=== PATIENT | male | born 1965 | race Native Hawaiian/Other Pacific Islander ===

== ENCOUNTER 2016-09-28 21:30 | Emergency (ER) | payer OTHER ==
--- NOTE | 2016-09-28 22:57 | Emergency Department Report ---
Chief Complaint: Nausea/Vomiting/Diarrhea Stated Complaint: HEADACHE/DIZZINESS Time Seen by Provider: 09/28/16 22:48 - HPI History of Present Illness: 51-year-old male presents today with headache, dizziness, nausea, vomiting since 7 PM. Positive for chest pain. Denies head injury or trauma. Denies shortness of breath, abdominal pain, visual changes. States that his head seems to feel numb. - ROS Review of Systems: Per HPI - Exam Vital Signs: Vital Signs 09/28/16 21:52 Temperature 97.8 F Pulse Rate 68 Respiratory 20 Rate Blood Pressure 131/76 O2 Sat by Pulse 98 Oximetry Physical Exam: General: 51-year-old male in no acute distress. Well-developed, well-nourished. CV: Regular rate and rhythm. Lungs: Clear to auscultation bilaterally. Neuro: Alert and oriented 3, normal gait, fluid speech, EOMs intact, normal facial sensation, strength exam 5/5 upper and lower extremities, GCS equals 15, finger to nose normal, negative Romberg test. MSE screening note: Focused history and physical exam performed. Due to findings the following was ordered: ED Disposition for MSE Condition: Stable
[2016-09-28 23:36] LABS: Basophils % (Auto) 0.2 % (0.0-1.8); Hemoglobin 14.4 gm/dl (11.8-15.2); Mean Corpuscular HGB Conc 34 % (32-34); Mean Corpuscular Hemoglobin 30 pg (28-32); Mean Corpuscular Volume 88 fl (84-94); Platelet Count 232 K/mm3 (140-440); Red Blood Count 4.88 M/mm3 (3.65-5.03); Red Cell Distribution Width 13.5 % (13.2-15.2); White Blood Count 9.3 K/mm3 (4.5-11.0)
--- NOTE | 2016-09-29 00:08 | Cat Scan Report ---
FINAL REPORT PROCEDURE: CT HEAD/BRAIN WO CON TECHNIQUE: Computerized tomography of the head was performed without contrast material. HISTORY: Headache COMPARISON: No prior studies are available for comparison. FINDINGS: Skull and scalp: Normal. Paranasal sinuses: Mild opacification of the ethmoid sinuses.. Ventricles and subarachnoid spaces: Normal. Cerebrum: No evidence of hemorrhage, acute infarction or mass . Cerebellum and brainstem: No evidence of hemorrhage, acute infarction or mass. Vasculature: Normal. Comments: None. IMPRESSION: There is no evidence of an acute intracranial process. Mild sinusitis.
[2016-09-29 00:13] LABS: Anion Gap 20 mmol/L; BUN/Creatinine Ratio 23.75; Blood Urea Nitrogen 19 mg/dL (9-20); Calcium 8.9 mg/dL (8.4-10.2); Carbon Dioxide 25 mmol/L (22-30); Chloride 99.7 mmol/L (98-107); Creatine Kinase MB 2.9 ng/mL (0.0-4.0); Glucose 113 mg/dL (75-100); Potassium 4.2 mmol/L (3.6-5.0); Sodium 140 mmol/L (137-145)
[2016-09-29 00:17] LABS: Creatine Kinase 218 units/L (55-170); Lipase 18 units/L (13-60)
[2016-09-29] MEDS ORDERED: ANTIVERT PO ONE (10:40)
[2016-09-29] MEDS ORDERED: ZOFRAN ODT PO ONE (10:40)
[2016-09-29 10:41] VITALS: BP 128/74
--- NOTE | 2016-09-29 10:43 | Emergency Department Report ---
HPI - General Chief Complaint: Nausea/Vomiting/Diarrhea Time Seen by Provider: 09/28/16 22:48 - HPI HPI: Bhakta 25 The patient is a 51-year-old male presenting with chief complaint of dizziness. Patient states his symptoms began yesterday while at [employer]. The patient states he closes his eyes when he "felt as though the room was spinning. Patient states he began having nausea and vomiting. Patient states his second episode yesterday while driving again started feeling as though everything was spinning and he had more nausea vomiting. Patient states she's had a diffuse headache for 1 week. Patient complains of slight dizziness currently patient denies any preceding trauma or fever. The patient currently gives his headache is score of 3/10. Patient states at times when he doesn't sleep he gets numbness to his calvarium. The patient admits to an episode of ear pain one year ago has had intermittent ear discomfort since Location: [see above] Duration: [see above] Quality: Vertigo Severity: 3/10 Modifying factors: Occasionally head movement brings on vertigo Context: [see above] Mode of transportation: [not driving] ED Past Medical Hx - Past Medical History Hx Hypertension: Yes - Surgical History Past Surgical History?: No - Family History Family history: no significant - Social History Smoking Status: Former Smoker (none 30 years) Substance Use Type: Alcohol (none 25 years) - Medications Home Medications: Home Medications Medication Instructions Recorded Confirmed Last Taken Type Pantoprazole [Protonix] 40 mg PO QDAY #30 tablet 10/05/13 Unknown Rx Meclizine [Antivert] 25 mg PO TID PRN #20 tablet 09/29/16 Unknown Rx Ondansetron [Zofran ODT TAB] 8 mg PO Q8HR #20 tab.rapdis 09/29/16 Unknown Rx ED Review of Systems ROS: Stated complaint: HEADACHE/DIZZINESS Other details as noted in HPI Comment: All other systems reviewed and negative Constitutional: denies: chills, fever Eyes: denies: eye pain, eye discharge, vision change ENT: ear pain Respiratory: denies: cough, shortness of breath, wheezing Cardiovascular: denies: chest pain, palpitations Endocrine: no symptoms reported Gastrointestinal: nausea, vomiting. denies: abdominal pain, diarrhea Genitourinary: denies: urgency, dysuria Musculoskeletal: denies: back pain, joint swelling, arthralgia Skin: denies: rash, lesions Neurological: headache, vertigo Psychiatric: denies: anxiety, depression Hematological/Lymphatic: denies: easy bleeding, easy bruising Physical Exam - Physical Exam Vital Signs: Vital Signs 09/28/16 09/29/16 09/29/16 21:52 04:12 08:17 Temperature 97.8 F 98 F 98.7 F Pulse Rate 68 58 L 64 Respiratory 20 20 18 Rate Blood Pressure 131/76 143/88 Blood Pressure 116/75 [Left] O2 Sat by Pulse 98 100 100 Oximetry Physical Exam: GENERAL: The patient is well-developed well-nourished male lying on stretcher not appearing to be in acute distress. [] HEENT: Normocephalic. Atraumatic. Extraocular motions are intact. Patient has moist mucous membranes. No nystagmus. NECK: Supple. No meningitic signs are noted. There is no adenopathy noted. CHEST/LUNGS: Clear to auscultation. There is no respiratory distress noted. HEART/CARDIOVASCULAR: Regular. There is no tachycardia. There is no gallop rub or murmur. ABDOMEN: Abdomen is soft, nontender. Patient has normal bowel sounds. There is no abdominal distention. SKIN: There is no rash. There is no edema. There is no diaphoresis. NEURO: The patient is awake, alert, and oriented. The patient is cooperative. The patient has no focal neurologic deficits. The patient has normal speech and gait. Cranial nerves II through XII grossly intact, no drift, normal sensation throughout. No dysmetria noticed with [id number] bilaterally.Negative Romberg MUSCULOSKELETAL: There is no evidence of acute injury. ED Course Vital Signs 09/28/16 09/29/16 09/29/16 21:52 04:12 08:17 Temperature 97.8 F 98 F 98.7 F Pulse Rate 68 58 L 64 Respiratory 20 20 18 Rate Blood Pressure 131/76 143/88 Blood Pressure 116/75 [Left] O2 Sat by Pulse 98 100 100 Oximetry ED Medical Decision Making - Lab Data Result diagrams: 09/28/16 23:20 09/28/16 23:20 Laboratory Tests 09/28/16 09/28/16 09/28/16 23:20 23:20 23:20 WBC 9.3 RBC 4.88 Hgb 14.4 Hct 43.0 MCV 88 MCH 30 MCHC 34 RDW 13.5 Plt Count 232 Lymph % (Auto) 7.6 L [place] % (Auto) 5.7 Eos % (Auto) 1.0 Baso % (Auto) 0.2 Lymph # 0.7 L [place] # 0.5 Eos # 0.1 Baso # 0.0 Seg Neutrophils % 85.5 H Seg Neutrophils # 8.0 H Sodium 140 Potassium 4.2 Chloride 99.7 Carbon Dioxide 25 BUN 19 Creatinine 0.8 Estimated GFR > 60 BUN/Creatinine Ratio 23.75 Glucose 113 H Calcium 8.9 Total Creatine Kinase 218 H CK-MB (CK-2) 2.9 CK-MB (CK-2) Rel Index 1.3 Troponin T < 0.010 Lipase 18 - EKG Data -: EKG Interpreted by Ut EKG shows normal: sinus rhythm Rate: bradycardia (59 bpm) - EKG Data When compared to previous EKG there are: previous EKG unavailable Interpretation: other (no ischemic changes seen) - Radiology Data Radiology results: report reviewed (CT head), image reviewed (CT head) CT head (read by radiologist)-there is no evidence of acute intracranial process. Mild sinusitis - Differential Diagnosis vertigo, gastritis, ICH Critical care attestation.: If time is entered above; I have spent that time in minutes in the direct care of this critically ill patient, excluding procedure time. ED Disposition Clinical Impression: Vertigo Disposition: DISCHARGED TO HOME OR SELFCARE Is pt being admited?: No Does the pt Need Aspirin: No Condition: Stable Instructions: Vertigo (ED) Additional Instructions: Return to the emergency department immediately should you develop worsening symptoms, fever, inability to tolerate food or liquid or any other concerns. Prescriptions: Meclizine [Antivert] 25 mg PO TID PRN #20 tablet PRN Reason: Vertigo Ondansetron [Zofran ODT TAB] 8 mg PO Q8HR #20 tab.rapdis Referrals: JAN CESPEDES MD [Primary Care Provider] - 3-5 Days ROSE BROWNLEE MD [Staff Physician] - 3-5 Days (Dr. Brownlee is a neurologist. Please follow up with him for further evaluation) JIHAN SAXENA MD [Staff Physician] - 3-5 Days (Dr. Saxena is an clothes model (ear nose and throat doctor). Please follow up with her for further evaluation) Time of Disposition: 10:49
== END 2016-09-29 10:56 | disposition home or self-care (01) ==
LOC: ED 21:30
DX: R42 Dizziness and giddiness (principal); I10 Essential (primary) hypertension; Z87.891 Personal history of nicotine dependence
CPT/HCPCS: 36415; 70450; 80048; 82550; 82553; 83690; 84484; 85025; 93005; 93010; Q0162